=== PATIENT | male | born 1950 | race Caucasian/White ===

== ENCOUNTER 2018-08-06 17:03 | Outpatient (REF) | payer MEDICARE, OTHER, SELFPAY ==
[2018-08-06 20:00] LABS: Abs Immature Grans 0.01 k/cumm (0.0-0.09); Absolute Basophil Count 0.06 k/cumm (0.0-0.2); Absolute Lymphocyte Count 1.71 k/cumm (1.2-3.4); Absolute Neutrophil Count 4.57 k/cumm (1.2-6.7); Basophils % 0.8; HGB 13.2 g/dL (13.5-17.5); Immature Grans % 0.1; Lymphocytes % 22.6; Mean Corp. HGB Concentration 34.7 g/dL (32.0-36.0); Mean Corpuscular Hemoglobin 32.1 pg (27.0-33.0); Mean Corpuscular Volume 92.5 fL (80-95); Mean Platelet Volume 12.6 fL (8.0-11.0); Monocytes % 11.9; Neutrophils % 60.6; Platelet Count 187 x1000/uL (130-400); RBC 4.11 m/cumm (4.50-6.00); RBC Distribution Width 12.8 % (11.8-14.1); White Blood Cell Count 7.55 k/cumm (4.4-10.8)
== END 2018-08-06 17:23 ==
LOC: NCHCN 17:03
PROVIDERS: PCP Internal Medicine; Visit Provider Physician Assistant Medical
DX: K62.5 Hemorrhage of anus and rectum (principal)
CPT/HCPCS: 85025

== ENCOUNTER 2018-08-13 13:50 | Outpatient (REF) | payer MEDICARE, OTHER, SELFPAY ==
[2018-08-13 18:54] LABS: HCT 36.3 % (40.0-50.0); HGB 12.7 g/dL (13.5-17.5); Mean Corpuscular Hemoglobin 32.2 pg (27.0-33.0); Mean Corpuscular Volume 91.9 fL (80-95); Mean Platelet Volume 12.1 fL (8.0-11.0); Platelet Count 185 x1000/uL (130-400); RBC 3.95 m/cumm (4.50-6.00); RBC Distribution Width 12.7 % (11.8-14.1); White Blood Cell Count 8.19 k/cumm (4.4-10.8)
[2018-08-13 19:04] LABS: Prothrombin Time 9.3 sec (9.3-10.8)
== END 2018-08-13 14:10 ==
LOC: NCHCN 13:50
PROVIDERS: PCP Internal Medicine; Visit Provider Internal Medicine
DX: K62.5 Hemorrhage of anus and rectum (principal)
CPT/HCPCS: 85027; 85610

== ENCOUNTER 2018-10-30 11:07 | Outpatient (CLI) | payer MEDICARE, OTHER, SELFPAY ==
--- NOTE | 2018-10-30 11:01 | DI.RAD_ITS ---
SYMPTOMS/DIAGNOSIS: PAIN LUMBAR SPINE: AP and lateral views. There are five lumbar-type vertebral bodies. There is straightening of the normal lordosis. There are vacuum discs at L4-5 and L5-S1. There is disc space narrowing at L5-S1. Osteophytes are seen at the endplates throughout the lumbar spine. No acute fractures or subluxations are seen. Degenerative facet arthropathy is present throughout the lumbar spine. IMPRESSION: Moderate degenerative changes of the lumbar spine. BILATERAL HIPS: No priors. The right hip shows mild acetabular spurring. In the left hip, there is spurring seen both from the acetabulum and the femoral head. There is also mild narrowing of the joint space. The bones do appear to be intact. The soft tissues are unremarkable. IMPRESSION: Mild degenerative changes of the hips, left greater than right.
== END 2018-10-30 11:27 ==
PROVIDERS: PCP Internal Medicine; Referring Provider Internal Medicine; Visit Provider Orthopaedic Surgery
DX: M54.5 Low back pain (principal); M47.817 Spondylosis without myelopathy or radiculopathy, lumbosacral region; M25.551 Pain in right hip; M25.552 Pain in left hip; M16.0 Bilateral primary osteoarthritis of hip
CPT/HCPCS: 73521; 99214; 72100

== ENCOUNTER 2018-12-17 16:27 | Outpatient (REF) | payer MEDICARE, OTHER, SELFPAY | END 2018-12-17 16:47 | LOC: NCHCN 16:27 | PROVIDERS: PCP Internal Medicine; Visit Provider Physician Assistant Medical | DX: R39.9 Unspecified symptoms and signs involving the genitourinary system (principal) | CPT/HCPCS: 87086 ==

== ENCOUNTER 2019-08-21 17:05 | Outpatient (REF) | payer MEDICARE, OTHER, SELFPAY ==
[2019-08-21 20:38] LABS: HGB 13.6 g/dL (13.5-17.5); Mean Corpuscular Hemoglobin 31.4 pg (27.0-33.0); Mean Corpuscular Volume 92.4 fL (80-95); Mean Platelet Volume 11.7 fL (8.0-11.0); Platelet Count 190 x1000/uL (130-400); RBC 4.33 m/cumm (4.50-6.00); RBC Distribution Width 13.2 % (11.8-14.1); White Blood Cell Count 6.49 k/cumm (4.4-10.8)
[2019-08-21 21:01] LABS: ALT 27 U/L (16-63); Anion Gap 11.5 mmol/L (3-11); BUN 15 mg/dL (7-18); CO2 27.5 mmol/L (21.0-32.0); CREATININE 1.12 mg/dL (0.70-1.30); Calcium 8.7 mg/dL (8.5-10.1); Chloride 104 mmol/L (98-107); Ferritin 73 ng/mL (8-388); Glucose 140 mg/dL (70-100); LDL CHOLESTEROL 49 mg/dL (<100); Potassium 3.3 mmol/L (3.5-5.1); Sodium 143 mmol/L (136-145)
== END 2019-08-21 17:25 ==
LOC: NCHCN 17:05
PROVIDERS: PCP Internal Medicine; Visit Provider Internal Medicine
DX: E11.9 Type 2 diabetes mellitus without complications (principal); I10 Essential (primary) hypertension; E78.5 Hyperlipidemia, unspecified
CPT/HCPCS: 80048; 83721; 85027; 82728; 84460

== ENCOUNTER 2020-04-23 13:18 | Emergency (ER) | payer MEDICARE, SELFPAY ==
[2020-04-23] VITALS (13 sets, daily range): BP systolic 116–137; BP diastolic 63–77; PULSE 62–83; RESP 13–27; TEMP 36.7–36.8; O2SAT 92–96
--- NOTE | 2020-04-23 13:15 | RT.EKG_ITS ---
APPROVED REPORT Exam: Resting ECG Patient Location: E HR:77 bpm ECG Measurements Heart Rate 77 AXIS AK 172 P 0 QRSd 103 QRS 5 QT 400 T 105 QTc 453 <Conclusion> Age and gender not entered, assume 48 yo male for purpose of ECG interpretation Sinus rhythm...normal P axis, V-rate 60- 99 Nonspecific T abnormalities, lateral leads...T <-0.10mV, I aVL V5 V6
--- NOTE | 2020-04-23 13:30 | DI.RAD_ITS ---
EXAM: XR CHEST 2V PA LATERAL CLINICAL HISTORY: expressive aphasia, resolved TECHNIQUE: 2D digital imaging was performed. COMPARISON: No exams were available for comparison FINDINGS: The heart is not enlarged. The lungs are clear and well expanded. No pleural effusion seen. Mediastin al contours appear intact. IMPRESSION: Normal chest
--- NOTE | 2020-04-23 13:30 | DI.CT_ITS ---
EXAM: CT BRAIN NECK CTA CLINICAL HISTORY: expressive aphasia, now resolved. TECHNIQUE: Imaging Protocol: Axial CT angiography was performed with multi-slice acquisition and mu lti-planar and/or 3D reconstructions. CONTRAST MATERIAL: Intravenous: Omnipaque 350 Contrast volume:structured data in ml COMPARISON: No exams were available for comparison FINDINGS: Noncontrast cranial CT was performed initially, followed by CT angiography of the cervical cranial re gion with injection of 86 cc Omnipaque 350. Noncontrast cranial CT shows mild generalized cerebral atrophy, no evidence of acute intracranial hem orrhage, mass effect, or midline shift. There is opacification of left frontal sinus and a few bilateral ethmoid air cells. Otherwise the par anasal sinuses and mastoid air cells are clear as visualized. The orbital and temporal bone structur es appear intact. Visualized lung apices are clear. Visualized portions of thoracic aorta and pulmonary arterial circul ation are unremarkable. There is no evidence of a cervical mass or adenopathy. The tracheal laryngeal structures appear intact. The common, internal, and external carotid arteries are within normal limits in the cervical region w ith no evidence of aneurysm, stenosis, or dissection. The vertebral arteries are unremarkable in appearance in the cervical region with no evidence of aneu rysm, stenosis, or dissection. Intracranial portions of the internal carotid arteries appear normal with no evidence of aneurysm, st enosis, or dissection. Intracranial vertebral arteries and basilar artery appear normal with no evidence of aneurysm, stenos is or dissection. No aneurysm identified in the region of the [id number]. The anterior, middle, and posterior cer ebral arteries and major branches appear intact with no evidence of aneurysm, stenosis, or dissection . No enhancing brain lesion identified. IMPRESSION: Negative CT angiography of the cervical cranial region. Left frontal and bilateral ethmoid sinusitis, chronic versus acute. RADIATION DOSE DELIVERED: [id number] DLP DATA REPOSITORY: All CT scans at this facility are submitted to the National Radiology Data Registry (NRDR) Dose Index Registry (DIR) with the [employer] (ACR). RADIATION OPTIMIZATION: All CT scans at this facility use at least one of these dose optimization te chniques: automated exposure control; mA and/or kV adjustment per patient size (includes targeted exa ms where dose is matched to clinical indication); or iterative reconstruction.
--- NOTE | 2020-04-23 13:35 | ED.GENADUL_ITS ---
Discharge Plan Disposition Patient Disposition: HOME Condition: Improving Discharge Details Chief Complaint: CVA/TIA Clinical Impression: Word finding difficulty Primary Care Provider: Roe Boucher ED Provider: Willy Bonner Home Meds and New Rx's Prescriptions: Continued aspirin [Aspir-81] 81 MG tablet,delayed release (DR/EC) 81 mg PO DAILY RF: 0 tamsulosin 0.4 MG capsule 2 tab PO HS RF: 0 simvastatin 20 MG tablet 20 mg PO DAILY RF: 0 hydrochlorothiazide 25 MG tablet 25 mg PO DAILY RF: 0 amlodipine 10 MG tablet 10 mg PO DAILY RF: 0 metformin [Glucophage] 1,000 MG tablet 1,000 mg PO BID RF: 0 losartan 100 MG tablet 100 mg PO DAILY RF: 0 Discharge Instructions Additional Instructions: He underwent CT angiogram of the head and neck tonight which did not show any acute pathology. Please restart your daily aspirin. Continue your regularly prescribed medications. Please follow-up with Dr. Ramos in clinic for recheck. Return if you develop recurrent difficulty with speech, develop a facial droop, clumsiness, headache, difficulty with walking, or any other acute concerns Medical Decision Making This is a 69-year-old male presents on referral by his primary care physician. He reports approximately 1 month ago having 5 to 10-minute episode of word finding and unable to recall people's name. It was not associated with other symptoms and it resolved on its own. He states another episode 1 week ago of 5 minutes for a felt difficulty with expressing his words. He again did not have any associated symptoms and denies headache, facial droop, clumsiness, difficulty with gait, recent illness or injury. He has been feeling well and worked today. He arrives to the emergency department without complaint having finished a job with his excavator today. His vital signs are normal with a blood pressure 137/76. He has a nonfocal neurologic examination. Labs reveal mild worsening of chronic renal insufficiency with creatinine 1.6 today. Patient did receive a small fluid bolus of 500 cc normal saline while in the ED. His laboratories are otherwise reassuring. CT angiogram of the head and neck does not reveal acute pathology. Screening chest x-ray unremarkable. Patient had stopped taking daily aspirin which I will have him resume. We will have him follow-up with Dr. Ramos in clinic and he may need referral to neurology if his intermittent episodes of word finding persist. He will also benefit from recheck of renal function. Lab Data Lab results reviewed: Yes I reviewed the patient's lab results. Labs: Laboratory Results - last 24 hr 04/23/20 04/23/20 04/23/20 13:45 13:45 13:45 WBC 7.52 RBC 3.90 L Hgb 12.4 L Hct 35.8 L MCV 91.8 MCH 31.8 MCHC 34.6 RDW 12.6 Plt Count 212 MPV 11.0 Immature Gran % 0.4 Neutrophils % 69.7 Lymphocytes % 16.1 Monocytes % 10.4 Eosinophils % 2.7 Basophils % 0.7 Absolute Neutrophils 5.25 Absolute Lymphocytes 1.21 Absolute Monocytes 0.78 H Absolute Eosinophils 0.20 Absolute Basophils 0.05 PT 9.9 INR 1.0 Sodium 142 Potassium 3.4 L Chloride 106 Carbon Dioxide 26.0 Anion Gap 10.0 BUN 23 H Creatinine 1.64 H Estimated GFR/1.73 m2 41.62 Glucose 203 H Calcium 8.5 Magnesium 1.9 Total Bilirubin 0.4 AST 17 ALT 24 Alkaline Phosphatase 83 Troponin I < 0.05 Total Protein 7.1 Albumin 3.6 HPI General Mode of arrival: ambulatory . Date/Time Provider Initiated Documentation: 04/23/20 13:23 . Limitations to Documentation: no limitations . Information obtained by: patient . History of Present Illness 69 year old M presents to the emergency department with the chief complaint of 2 episodes of self resolved word finding/expressive aphasia, described as mild, and is localized to the mouth. Patient started experiencing this minute(s) and it has been now resolved. No relieving factors improve symptom(s), No exacerbating factors reported . Patient notes no other symptoms.; denies chest pain, diaphoresis, fever/chills, headaches, loss of appetite, nausea/vomiting and seizure. Patient did receive the following treatments prior to arrival, none Related Data Home Medications Medication Instructions Recorded Confirmed aspirin [Aspir-81] 81 mg PO DAILY 10/19/15 10/30/18 simvastatin 20 mg PO DAILY 10/19/15 04/23/20 tamsulosin 2 tab PO HS 10/19/15 04/23/20 amlodipine 10 mg PO DAILY 11/04/16 04/23/20 hydrochlorothiazide 25 mg PO DAILY 11/04/16 04/23/20 losartan 100 mg PO DAILY 11/04/16 04/23/20 metformin [Glucophage] 1,000 mg PO BID 11/04/16 04/23/20 Allergies Allergy/AdvReac Type Severity Reaction Status Date / Time No Known Allergies Allergy Unverified 04/23/20 13:33 General Stated Complaint: CVA/TIA BEATRIZ: 3 Review of Systems Narrative: Stop taking aspirin months ago due to bleeding hemorrhoids that are now improved. Takes his other medications. No other illness. No headache, no facial droop, no difficulty with gait or speech. No clumsiness of the hands. 8 systems reviewed and otherwise negative [facility] Social History Smoking/Tobacco Use Status: Never Alcohol Intake: never Drug use: Never Substance use type: does not use Do you feel safe at home: Yes Do you feel safe in your relationship?: Yes Exam Narrative Exam Narrative: GEN: awake, alert, oriented 3. Pleasant, well groomed, interact jose armando. HEAD: Normocephalic, atraumatic ENT: Mucous membranes moist, oropharynx unremarkable, External ear exam unremarkable EYES: PERRL, EOMI NECK: Full ROM, no JORGE LUIS, no menigismus CHEST/RESP: Nontender, clear to auscultation bilateral, no wheeze/rhonchi/rales CARDIOVASCULAR: RRR, no murmur, rub georgie. 2+ Rad pulse bilateral ABDOMEN: Soft, nontender, no mass. +Bowel sounds EXT: Full ROM, no edema, no rash Neuro: Grossly normal neurologic exam, conversant, interactive. Cranial nerves II through XII intact, [id number] intact, motor graded 5 out of 5 in the bilateral upper and lower extremities. Visual jara normal to confrontation Psych: Speech fluent, thoughts congruent, affect normal Course Vital Signs Vital signs: Vital Signs Temperature 36.8 C 04/23/20 13:23 Pulse 73 04/23/20 13:23 Respiratory Rate 16 04/23/20 13:23 Blood Pressure 137/76 04/23/20 13:23 Pulse Oximetry 95 04/23/20 13:23 Temperature 36.8 C 04/23/20 13:23 Temperature Source Temporal Artery Scan 04/23/20 13:23 Pulse 73 04/23/20 13:23 Respiratory Rate 16 04/23/20 13:23 Respiratory Effort Non-Labored 04/23/20 13:31 Blood Pressure 137/76 04/23/20 13:23 Blood Pressure Position Supine 04/23/20 13:23 Pulse Oximetry 95 04/23/20 13:23 Oxygen Delivery Method Room Air 04/23/20 13:23 Oxygen Flow Rate 0 04/23/20 13:23 Pain Level 1 04/23/20 13:23
[2020-04-23 14:04] LABS: Prothrombin Time 9.9 sec (9.3-11.0)
[2020-04-23 14:07] LABS: ALT 24 U/L (16-63); AST 17 U/L (15-37); Abs Immature Grans 0.03 k/cumm (0.0-0.09); Absolute Basophil Count 0.05 k/cumm (0.0-0.2); Absolute Lymphocyte Count 1.21 k/cumm (1.2-3.4); Absolute Monocyte Count 0.78 k/cumm (0.11-0.7); Absolute Neutrophil Count 5.25 k/cumm (1.2-6.7); Albumin 3.6 g/dL (3.4-5.0); Alkaline Phosphatase 83 U/L (46-116); BUN 23 mg/dL (7-18); Basophils % 0.7; Bilirubin, Total 0.4 mg/dL (0.2-1.0); CREATININE 1.64 mg/dL (0.70-1.30); Calcium 8.5 mg/dL (8.5-10.1); Chloride 106 mmol/L (98-107); Eosinophils % 2.7; Estimated GFR 41.62 (mL/min/1.73m2); Glucose 203 mg/dL (74-106); HCT 35.8 % (40.0-50.0); HGB 12.4 g/dL (13.5-17.5); Immature Grans % 0.4 %; Lymphocytes % 16.1; Magnesium 1.9 mg/dL (1.8-2.4); Mean Corp. HGB Concentration 34.6 g/dL (32.0-36.0); Mean Corpuscular Hemoglobin 31.8 pg (27.0-33.0); Mean Corpuscular Volume 91.8 fL (80-95); Monocytes % 10.4; Neutrophils % 69.7; Platelet Count 212 x1000/uL (130-400); Potassium 3.4 mmol/L (3.5-5.1); RBC Distribution Width 12.6 % (11.8-14.1); Sodium 142 mmol/L (136-145); Total Protein 7.1 g/dL (6.4-8.2); White Blood Cell Count 7.52 k/cumm (4.4-10.8)
[2020-04-23 14:08] LABS: Troponin I < 0.05 ng/mL (<0.06)
[2020-04-23] MEDS: Normal Saline 250 ML 500 ML IV (14:30)
[2020-04-23] MEDS: Normal Saline - Diluent 50 ML VIAL IV (14:59)
[2020-04-23] MEDS: Omnipaque 350 MG/ML 100 ML BTL IJ (14:59)
[2020-04-23] MEDS: Normal Saline Flush 10 ML SYR IVP (15:00)
== END 2020-04-23 16:01 | disposition home or self-care (01) ==
PROVIDERS: Emergency Provider Emergency Medicine; PCP Internal Medicine
DX: R47.89 Other speech disturbances (principal); N18.9 Chronic kidney disease, unspecified; I12.9 Hypertensive chronic kidney disease with stage 1 through stage 4 chronic kidney disease, or unspecified chronic kidney disease; E11.22 Type 2 diabetes mellitus with diabetic chronic kidney disease; Z79.84 Long term (current) use of oral hypoglycemic drugs
CPT/HCPCS: 36415; 36416; 70496; 70498; 80053; 82962; 93005; 96360; 99285; 71046; 83735; 84484; 85025; 85610; 93010; 99284; J3490

== ENCOUNTER → 2020-04-30 13:35 | Outpatient (BNVA) | payer MEDICARE, SELFPAY | PROVIDERS: PCP Internal Medicine; Referring Provider Family Medicine; Visit Provider Psychiatry & Neurology Neurology | DX: I63.89 Other cerebral infarction (principal); G45.9 Transient cerebral ischemic attack, unspecified; E11.22 Type 2 diabetes mellitus with diabetic chronic kidney disease; I10 Essential (primary) hypertension; R47.89 Other speech disturbances | CPT/HCPCS: 99205; 99215 ==

== ENCOUNTER 2020-05-01 02:39 | Outpatient (CLI) | payer MEDICARE, SELFPAY ==
--- NOTE | 2020-06-11 10:47 | W.CARDEVENT ---
Date of service: 06/11/20 Time of Service: 10:47 Cardiac Event Recorder Referring Provider:: DR Dumont Indications:: TIA Cardiac Event Note: This was a 30-day cardiac event monitor reportedly ordered for indication of transient ischemic attack Predominant rhythm was sinus. Average heart rate was 71. Minimum heart rate was 54 and maximum 106 There was no atrial fibrillation Sinus bradycardia was noted during sleep There were two 4 beat runs of nonsustained ventricular tachycardia
== END 2020-05-01 02:59 ==
PROVIDERS: PCP Internal Medicine; Visit Provider Psychiatry & Neurology Neurology
DX: G45.9 Transient cerebral ischemic attack, unspecified (principal); I47.2 Ventricular tachycardia
CPT/HCPCS: 93270

== ENCOUNTER 2020-05-07 02:56 | Outpatient (CLI) | payer MEDICARE, SELFPAY ==
[2020-05-07 09:10] LABS: Hemoglobin A1C 6.6 % (3.8-5.6)
[2020-05-07 10:18] LABS: Anion Gap 9.7 mmol/L (3-11); BUN 31 mg/dL (7-18); CO2 27.3 mmol/L (21.0-32.0); CREATININE 1.61 mg/dL (0.70-1.30); Calcium 8.6 mg/dL (8.5-10.1); Calculated LDL 47 mg/dL (<100); Chloride 106 mmol/L (98-107); Cholesterol 107 mg/dL (<200); Estimated GFR 42.52 (mL/min/1.73m2); Glucose 96 mg/dL (74-106); HDL Cholesterol 38 mg/dL (40-60); Potassium 3.7 mmol/L (3.5-5.1); Sodium 143 mmol/L (136-145); Triglyceride 111 mg/dL (<150)
== END 2020-05-07 03:16 ==
PROVIDERS: PCP Internal Medicine; Visit Provider Psychiatry & Neurology Neurology
DX: E11.42 Type 2 diabetes mellitus with diabetic polyneuropathy (principal); G45.9 Transient cerebral ischemic attack, unspecified; I63.9 Cerebral infarction, unspecified
CPT/HCPCS: 36415; 80048; 80061; 83036

== ENCOUNTER 2020-05-28 00:46 | Outpatient (CLI) | payer MEDICARE, SELFPAY ==
--- NOTE | 2020-05-28 12:17 | DI.US_ITS ---
APPROVED REPORT EXAM: Comprehensive 2D, Doppler, and color-flow Echocardiogram Patient Location: Out-Patient Front End Technician: Kate Kwan RDCS (AE) Indications: TIA,CVA Other Information Study Quality: Adequate Conclusion Left Ventricle : The left ventricle is normal size. The left ventricular systolic function is normal. The left ventricular ejection fraction is within the normal range. There is normal left ventricular wall thickness. There is normal LV segmental wall motion. The left ventricular diastolic function is normal. LVEF is 58%. Right Ventricle : The right ventricle is normal size. The right ventricular systolic function is norm al. The RVSP is 30.4 mmHg. Atria : The left atrium size is normal. The right atrium size is normal. The interatrial septum is in tact with no evidence for an atrial septal defect by color Doppler. Bubble study was not performed. Valves: There are no hemodynamically significant valvular lesions. Great Vessels : The aortic root is normal in size. The ascending aorta is normal in size. Aortic arch is normal in caliber. IVC is normal in size and collapses >50% with inspiration. There is no prior study available for comparison. Wall motion Left Ventricle The left ventricle is normal size. The left ventricular systolic function is normal. The left ventric ular ejection fraction is within the normal range. There is normal left ventricular wall thickness. T here is normal LV segmental wall motion. The left ventricular diastolic function is normal. There is no ventricular septal defect visualized. LVEF is 58%. Right Ventricle The right ventricle is normal size. The right ventricular systolic function is normal. The RVSP is 30 .4 mmHg. Atria The left atrium size is normal. The right atrium size is normal. The interatrial septum is intact wit h no evidence for an atrial septal defect by color Doppler. Bubble study was not performed. Aortic Valve The Aortic valve is sclerotic. Aortic valve is trileaflet. There is no aortic valvular stenosis. Trac e to mild aortic regurgitation. Mitral Valve Mild mitral annular calcification. No evidence of mitral valve stenosis. Trace to mild mitral regurgi tation. Tricuspid Valve The tricuspid valve is normal in structure. There is no tricuspid valve stenosis. Trace to mild tricu spid regurgitation. Pulmonic Valve The pulmonary valve is normal in structure. There is no pulmonic valvular stenosis. Mild pulmonic reg urgitation. Great Vessels The aortic root is normal in size. The ascending aorta is normal in size. Aortic arch is normal in ca liber. IVC is normal in size and collapses >50% with inspiration. Pericardium There is no pericardial effusion. There is no pleural effusion. 2D Dimensions IVSD d PLAX 1.09 cm M: 0.6-1.2 LV Vol A2C d MOD 122.5 mL LVPW d PLAX 1.07 cm M: 0.6 - 1.2 LV Vol A4C d MOD 87.6 mL LVID d PLAX 5.58 cm M: 4.2 - 5.8 LA vol/ BSA A2C s A-L 30.6 mL/m2 LVDs 3.75 cm M: 2.5 - 4.0 LA vol/ BSA A4C s A-L 24.8 mL/m2 Ao Root d 3.39 cm M: 3.1 - 3.7 LA Vol/ BSA Biplane s A-L 29.4 mL/m2 RA Area A4C 12.52 cm2 LA Area A4C s MOD 18.83 cm2 RA Vol/ BSA A4C s A-L 11.9 mL/m2 LA Area A2C s MOD 19.62 cm2 Ao Asc Diam d 3.40 cm M: 2.6 - 3.4 LV EF A4C MOD 57.3 % LV EF Teichholz 60.4 % LV EF A2C MOD 58.5 % LVEF (Ely's) 57.58 % M: 52 - 72 LV EF Biplane MOD 57.6 % LV Volume 85.92 mL M: 62 - 150 SV 66.20 mL LV Volume Index 42.53 mL/m2 M: 34 - 74 SV Index 32.74 mL/m2 LV Vol Biplane MOD 115.0 mL FS 32.60 % M-Mode TAPSE 2.40 cm (M/F) >1.7 LV Diastology MV E' medial 0.087 (>0.07 m/s) E/A Ratio 0.9 LV E/e MED 7.85 (<14) MV E Vmax 0.68 (0.4-1.3 m/s) MV E' lateral 0.071 (>0.1 m/s) MV A Vmax 0.80 (0.4-1.3 m/s) LV E/e LAT 9.65 (<14) MV E/A Ratio 0.82 MV E/E' medial 7.89 MV E/E' lateral 9.66 Aortic Valve LVOT Area 3.51 cm2 AoV Area Vmax 2.58 cm2 LVOT Vmax 1.18 m/s AoV Area/ BSA (Vmax) 1.27 cm2/m2 LVOT Mean Jaime. 0.74 m/s EMILIANA Mean Jaime. 2.31 cm2 LVOT Peak Grad 5.6 mmHg EMILIANA Mean Jaime. Index 1.14 cm2/m2 LVOT Mean Grad 2.6 mmHg AR DT 4188 msec LVOT VTI 0.265 m AR PHT 1214 msec LVOT Diam s 2.10 cm AoV Vmax 1.61 m/s Velocity Ratio 0.73 AoV Mean Jaime. 1.13 m/s AoV Peak Grad 10.4 mmHg LVOT SV 93.01 mL AoV Mean Grad 5.6 mmHg AoV VTI 0.336 m AoV Area VTI 2.77 cm2 AoV Area/ BSA (VTI) 1.37 cm/m2 Mitral Valve MV DT 240 (160-240 msec) MR Vmax 4.28 m/s MV PHT 70 msec MR VTI 1.327 m MV Area PHT 3.16 cm2 MR Peak Grad 73.2 mmHg MV VTI 0.404 m MR Mean Grad 59.4 mmHg MV VTI Annulus 0.400 m MR PISA Radius 0.24 cm MV Area VTI 2.28 (4.0-6.0 cm2) MR EROA 0.03 cm2 MR Aliasing Velocity 0.35 m/s MR PISA 0.35 cm2 Pulmonary Valve PV Vmax 1.17 (0.5-1.5 m/s) RVOT Peak Gr. 1.79 mmHg PV Peak Grad 5.4 mmHg RVOT Mean Gr. 0.95 mmHg PV Mean Grad 2.8 mmHg RVOT VTI 0.145 m PV VTI 0.262 m RVOT Vmax 0.67 m/s Tricuspid Valve TR Peak Grad 27.3 mmHg TR Vmax 2.62 m/s RA Pressure 3.00 mmHg RVSP (TR) 30.4 mmHg
--- NOTE | 2020-06-04 15:15 | W.CARDEVENT ---
Date of service: 06/04/20 Time of Service: 15:15 Cardiac Event Recorder Referring Provider:: Franky Pathak Indications:: TIA Cardiac Event Note: There is a 30-day event monitor ordered for the indication of TIA. ?The patient was in normal sinus rhythm for the majority recording with an average heart rate of 75 bpm ?There were 3 automatically detected events 2 of which were associated with NSVT (4 beats) ?Patient triggered events were all associated with sinus rhythm. ?There were no episodes of atrial fibrillation, no pauses grade 3 seconds no evidence of high degree heart block.
== END 2020-05-28 01:06 ==
PROVIDERS: PCP Internal Medicine; Visit Provider Psychiatry & Neurology Neurology
DX: I63.9 Cerebral infarction, unspecified (principal); G45.9 Transient cerebral ischemic attack, unspecified
CPT/HCPCS: 93306

== ENCOUNTER 2020-06-11 10:47 | Outpatient (CLI) | payer MEDICARE, SELFPAY | END 2020-06-11 11:07 | PROVIDERS: PCP Internal Medicine; Referring Provider Psychiatry & Neurology Neurology; Visit Provider Internal Medicine Cardiovascular Disease | DX: G45.9 Transient cerebral ischemic attack, unspecified (principal); I47.1 Supraventricular tachycardia | CPT/HCPCS: 93272 ==

== ENCOUNTER 2020-09-10 19:38 | Outpatient (REF) | payer MEDICARE, SELFPAY ==
[2020-09-12 16:40] LABS: COVID-19 RT-PCR Result NEGATIVE (Negative)
== END 2020-09-10 19:58 ==
LOC: NCHCN 19:38
PROVIDERS: PCP Internal Medicine; Visit Provider Internal Medicine
DX: J20.9 Acute bronchitis, unspecified (principal); R06.09 Other forms of dyspnea
CPT/HCPCS: U0003

== ENCOUNTER 2020-09-24 10:37 | Outpatient (CLI) | payer MEDICARE, SELFPAY ==
--- NOTE | 2020-09-24 | DI.RAD_ITS ---
EXAM: XR CHEST 2V PA LATERAL CLINICAL HISTORY: PNEUMONIA > 1 MONTH. TECHNIQUE: 2D digital imaging was performed. COMPARISON: CR XR CHEST 2V PA LATERAL from 04/23/2020 FINDINGS: Heart size is normal. The mediastinum is not widened. Lungs are clear. No infiltrates nor pleural effusions. Mild increased density over the right lower lung field I suspect is related to possible gynecomastia. IMPRESSION: No acute pulmonary findings. DATA REPOSITORY: RADIATION DOSE DELIVERED:
== END 2020-09-24 10:57 ==
PROVIDERS: PCP Internal Medicine; Visit Provider Internal Medicine
DX: Z87.09 Personal history of other diseases of the respiratory system (principal)
CPT/HCPCS: 71046

== ENCOUNTER 2020-10-27 12:08 | Outpatient (CLI) | payer MEDICARE, SELFPAY ==
--- NOTE | 2020-10-27 14:15 | DI.RAD_ITS ---
EXAM: XR TOE RT GREAT CLINICAL HISTORY: PAIN RT TOE M79.674. TECHNIQUE: 2D digital imaging was performed. COMPARISON: No exams were available for comparison FINDINGS: BONES: There is an acute oblique mildly displaced fracture involving the diaphysis of the proximal p halanx of the great toe. The fracture does not appear to extend into the joint spaces. No bony dest ructive lesion is seen. JOINTS: There is no dislocation. Mild degenerative changes are seen at the 1st MTP joint. SOFT TISSUE: Soft tissue swelling of the great toe. IMPRESSION: Mildly displaced acute oblique fracture of the proximal phalanx of the great toe. DATA REPOSITORY: RADIATION DOSE DELIVERED:
== END 2020-10-27 12:28 ==
PROVIDERS: PCP Internal Medicine; Visit Provider Physician Assistant
DX: S92.411A Displaced fracture of proximal phalanx of right great toe, initial encounter for closed fracture (principal)
CPT/HCPCS: 73660

== ENCOUNTER 2021-07-09 16:58 | Outpatient (REF) | payer MEDICARE, SELFPAY ==
[2021-07-09 18:29] LABS: HCT 35.6 % (40.0-50.0); HGB 11.8 g/dL (13.5-17.5); MCH 31.1 pg (27.0-33.0); MCHC 33.1 % (32.0-36.0); MCV 93.7 fL (80-95); MPV 12.1 fL (8.0-11.0); Platelet Count 217 10^3/uL (130-400); RDW 12.8 % (11.8-14.1); RDW-SD 43.9 fL; WBC 7.79 10^3/uL (4.4-10.8)
[2021-07-09 19:09] LABS: ALT 31 U/L (16-63); AST 17 U/L (15-37); Albumin 3.9 g/dL (3.4-5.0); Alkaline Phosphatase 93 U/L (46-116); Anion Gap 11.5 mmol/L (3-11); BUN 37 mg/dL (7-18); Bilirubin, Total 0.4 mg/dL (0.2-1.0); CO2 25.5 mmol/L (21.0-32.0); CREATININE 1.7 mg/dL (0.70-1.30); Calcium 9.1 mg/dL (8.5-10.1); Chloride 107 mmol/L (98-107); Estimated GFR 39.71 (mL/min/1.73m2); Glucose 120 mg/dL (74-106); LDL CHOLESTEROL 52 mg/dL (<100); Potassium 3.4 mmol/L (3.5-5.1); Sodium 144 mmol/L (136-145); Total Protein 7.1 g/dL (6.4-8.2)
== END 2021-07-09 16:59 | disposition home or self-care (01) ==
LOC: NCHCN 16:58
PROVIDERS: PCP Internal Medicine; Visit Provider Internal Medicine
DX: D64.9 Anemia, unspecified (principal); K76.0 Fatty (change of) liver, not elsewhere classified; N18.9 Chronic kidney disease, unspecified
CPT/HCPCS: 80053; 83721; 85027

== ENCOUNTER 2021-07-30 09:15 | Outpatient (CLI) | payer MEDICARE, SELFPAY ==
--- NOTE | 2021-07-30 | DI.RAD_ITS ---
Exam(s) XR RIBS RT W PA LAT CHEST EXAM: XR RIBS RT W PA LAT CHEST CLINICAL HISTORY: RT SIDED RIB PAIN R07.81 TECHNIQUE: 2D digital imaging was performed. Six views were obtained. COMPARISON: CR XR lumbar spine AP, LAT from 10/30/2018 CR XR lumbar spine AP, LAT from 10/30/2018 CR XR CHEST 2V PA LATERAL from 09/24/2020 CR XR CHEST 2V PA LATERAL from 09/24/2020 FINDINGS: MEDIASTINUM: Normal. HEART: Normal. PULMONARY VASCULATURE: Normal. LUNGS: Clear. PLEURAL SPACE: No pleural effusion or pneumothorax. BONE:Normal. RIGHT RIBS: Normal. OTHER FINDINGS:Normal. IMPRESSION: 1. No acute pulmonary findings. 2. Unremarkable right ribs. DATA REPOSITORY: RADIATION DOSE DELIVERED:
== END 2021-07-30 09:35 ==
PROVIDERS: PCP Internal Medicine; Visit Provider Nurse Practitioner Family
DX: R07.81 Pleurodynia (principal)
CPT/HCPCS: 71046; 71100

== ENCOUNTER 2021-11-02 15:24 | Outpatient (REF) | payer MEDICARE, SELFPAY ==
[2021-11-02 20:16] LABS: Bilirubin Negative (Negative); Blood Trace-intact (Negative); Clarity Clear (Clear); Glucose 500 mg/dL (Negative); Ketones Negative (Negative); Leukocyte Esterase Negative (Negative); Nitrite Negative (Negative); Specific Gravity 1.025 (1.005-1.025); Urobilinogen 0.2 EU/dL (Up TO 0.2); pH 6.5 (5-8)
[2021-11-02 20:27] LABS: Bacteria Negative HPF (Negative); Crystals Negative HPF (Negative); Epithelial Cells Negative HPF (Negative); Mucus Negative (Negative); RBC 0-2 HPF (0-2); WBC Negative HPF (0-5)
[2021-11-02 20:28] LABS: C & S Indicated? No
== END 2021-11-02 15:25 | disposition home or self-care (01) ==
LOC: NCHCN 15:24
PROVIDERS: PCP Internal Medicine; Visit Provider Nurse Practitioner Family
DX: R31.9 Hematuria, unspecified (principal)
CPT/HCPCS: 81003; 81015

== ENCOUNTER 2022-07-11 15:01 | Outpatient (REF) | payer MEDICARE, SELFPAY ==
[2022-07-11 19:37] LABS: Abs Immature Grans 0.02 10^3/uL (0.0-0.06); Absolute Basophil Count 0.09 10^3/uL (0.0-0.2); Absolute Lymphocyte Count 1.16 10^3/uL (1.2-3.4); Absolute Monocyte Count 0.69 10^3/uL (0.1-0.8); Basophils % 1.3; Eosinophils % 4.2; HCT 38.3 % (40.0-50.0); HGB 12.8 g/dL (13.5-17.5); Immature Grans % 0.3; Lymphocytes % 16.2; MCH 31.1 pg (27.0-33.0); MCHC 33.4 % (32.0-36.0); MCV 93 fL (80-95); MPV 12.1 fL (8.0-11.0); Monocytes % 9.6; Neutrophils % 68.4; Platelet Count 190 10^3/uL (130-400); RBC 4.12 10^6/uL (4.36-5.78); RDW 12.8 % (11.8-14.1); RDW-SD 43.6 fL; WBC 7.16 10^3/uL (4.4-10.8)
[2022-07-11 20:02] LABS: Albumin 3.6 g/dL (3.4-5.0); Anion Gap 11.9 mmol/L (3-11); BUN 25 mg/dL (7-18); CO2 25.1 mmol/L (21.0-32.0); CREATININE 1.6 mg/dL (0.70-1.30); Calcium 8.7 mg/dL (8.5-10.1); Chloride 105 mmol/L (98-107); Estimated GFR 44.93 (mL/min/1.73m2); Glucose 219 mg/dL (74-106); Potassium 3.6 mmol/L (3.5-5.1); Sodium 142 mmol/L (136-145)
[2022-07-11 21:15] LABS: COMMENT (LAB VIEW ONLY) 150.56 mg/dL; PROTEIN 42.6 mg/dL; Prot/Crea Ur Ratio 0.28
[2022-07-12 09:24] LABS: COMMENT (LAB VIEW ONLY) 147.76 mg/dL
[2022-07-12 09:30] LABS: Microalb ug/mg Crea 124.2 ug/mg Cr
[2022-07-12 21:38] LABS: Parathyroid Hormone,Intact 39 pg/mL (19-88)
[2022-07-13 08:43] LABS: Hepatitis B Surface Ag Negative (Negative)
[2022-07-13 09:34] LABS: Hepatitis C Ab w Rflx HCV PCR Negative (Negative)
[2022-07-13 10:37] LABS: IgA 221 mg/dL (85-499); IgG 770 mg/dL (610-1,616); IgM 60 mg/dL (35-242)
[2022-07-13 13:47] LABS: Albumin g/dL 3.8 g/dL (3.6-5.2); Total Protein 6.2 g/dL (6.3-8.2)
[2022-07-13 14:52] LABS: Albumin, Urine % 54.8 %; Albumin, Urine mg/dL 21 mg/dL; Globulins, Urine % 45.2 %; Globulins, Urine mg/dL 17 mg/dL; Immunotyping, Urine (See Note); Total Protein Urine 38 mg/dL (See Note)
== END 2022-07-11 15:02 | disposition home or self-care (01) ==
LOC: LBN 15:01
PROVIDERS: PCP Internal Medicine; Visit Provider Internal Medicine Nephrology
DX: N18.32 Chronic kidney disease, stage 3b (principal); K76.0 Fatty (change of) liver, not elsewhere classified
CPT/HCPCS: 80048; 82784; 84156; 84166; 86335; 86803; 87340; 82040; 82043; 82565; 82570; 83970; 84165; 85025

== ENCOUNTER 2022-08-29 09:36 | Outpatient (REF) | payer MEDICARE, SELFPAY ==
[2022-08-29 19:16] LABS: Abs Immature Grans 0.02 10^3/uL (0.0-0.06); Absolute Eosinophil Count 0.39 10^3/uL (0.0-0.7); Absolute Lymphocyte Count 0.92 10^3/uL (1.2-3.4); Absolute Monocyte Count 0.63 10^3/uL (0.1-0.8); Absolute Neutrophil Count 4.15 10^3/uL (1.2-6.7); Basophils % 1.6; Eosinophils % 6.3; HCT 38.7 % (40.0-50.0); HGB 13.2 g/dL (13.5-17.5); Immature Grans % 0.3; Lymphocytes % 14.8; MCH 31.3 pg (27.0-33.0); MCHC 34.1 % (32.0-36.0); MCV 92 fL (80-95); MPV 11.9 fL (8.0-11.0); Monocytes % 10.1; Neutrophils % 66.9; Platelet Count 204 10^3/uL (130-400); RBC 4.22 10^6/uL (4.36-5.78); RDW 12.7 % (11.8-14.1); RDW-SD 42.6 fL; WBC 6.21 10^3/uL (4.4-10.8)
[2022-08-29 19:32] LABS: ALT 18 U/L (16-63); AST 17 U/L (15-37); Albumin 3.5 g/dL (3.4-5.0); Alkaline Phosphatase 90 U/L (46-116); Anion Gap 6.5 mmol/L (3-11); BUN 22 mg/dL (7-18); Bilirubin, Total 0.5 mg/dL (0.2-1.0); CO2 29.5 mmol/L (21.0-32.0); CREATININE 1.5 mg/dL (0.70-1.30); Calcium 8.9 mg/dL (8.5-10.1); Chloride 105 mmol/L (98-107); Estimated GFR 48.55 (mL/min/1.73m2); Glucose 220 mg/dL (74-106); Potassium 3.8 mmol/L (3.5-5.1); Sodium 141 mmol/L (136-145)
== END 2022-08-29 09:37 | disposition home or self-care (01) ==
LOC: LBN 09:36
PROVIDERS: PCP Internal Medicine; Visit Provider Neurological Surgery
DX: Z01.818 Encounter for other preprocedural examination (principal)
CPT/HCPCS: 80053; 85025

== ENCOUNTER 2022-11-23 17:52 | Outpatient (REF) | payer MEDICARE, SELFPAY ==
[2022-11-23 20:56] LABS: TSH 3.86 uIU/mL (0.36-3.74)
[2022-11-25 10:02] LABS: HSV Type 1 Ab, IgG Positive (Negative); HSV Type 2 Ab, IgG Negative (Negative)
== END 2022-11-23 17:53 | disposition home or self-care (01) ==
LOC: NCHCN 17:52
PROVIDERS: PCP Internal Medicine; Visit Provider Internal Medicine
DX: E03.9 Hypothyroidism, unspecified (principal); B37.42 Candidal balanitis
CPT/HCPCS: 84443; 86695; 86696

== ENCOUNTER 2023-08-11 09:36 | Outpatient (CLI) | payer MEDICARE, SELFPAY ==
[2023-08-11 09:41] LABS: Abs Immature Grans 0.01 10^3/uL (0.0-0.06); Absolute Basophil Count 0.07 10^3/uL (0.0-0.2); Absolute Eosinophil Count 0.43 10^3/uL (0.0-0.7); Absolute Monocyte Count 0.59 10^3/uL (0.1-0.8); Absolute Neutrophil Count 3.88 10^3/uL (1.2-6.7); Basophils % 1.1; HCT 37.3 % (40.0-50.0); HGB 13.1 g/dL (13.5-17.5); Immature Grans % 0.2; Lymphocytes % 19.4; MCH 32.2 pg (27.0-33.0); MCHC 35.1 % (32.0-36.0); MCV 92 fL (80-95); MPV 11.4 fL (8.0-11.0); Monocytes % 9.5; Neutrophils % 62.8; Platelet Count 174 10^3/uL (130-400); RBC 4.07 10^6/uL (4.36-5.78); RDW 12.4 % (11.8-14.1); RDW-SD 41.6 fL; WBC 6.18 10^3/uL (4.4-10.8)
[2023-08-11 09:56] LABS: Albumin 3.6 g/dL (3.4-5.0); Anion Gap 7.7 mmol/L (3-11); BUN 32 mg/dL (7-18); CO2 30.3 mmol/L (21.0-32.0); CREATININE 1.8 mg/dL (0.70-1.30); Chloride 103 mmol/L (98-107); Estimated GFR 38.77 (mL/min/1.73m2); Glucose 178 mg/dL (74-106); Potassium 3.5 mmol/L (3.5-5.1); Sodium 141 mmol/L (136-145)
[2023-08-11 10:09] LABS: COMMENT (LAB VIEW ONLY) 17.88 mg/dL; PROTEIN 6.8 mg/dL; Prot/Crea Ur Ratio 0.38
[2023-08-11 10:12] LABS: COMMENT (LAB VIEW ONLY) 18.75 mg/dL
[2023-08-11 10:13] LABS: Microalb ug/mg Crea 154.1 ug/mg Cr
[2023-08-11 18:45] LABS: Parathyroid Hormone,Intact 67 pg/mL (19-88)
== END 2023-08-11 09:37 | disposition home or self-care (01) ==
PROVIDERS: PCP Internal Medicine; Visit Provider Internal Medicine Nephrology
DX: N18.31 Chronic kidney disease, stage 3a (principal)
CPT/HCPCS: 80048; 82040; 82043; 82565; 82570; 83970; 84156; 85025

== ENCOUNTER → 2023-09-04 01:07 | Outpatient (CLI) | payer MEDICARE, SELFPAY ==
--- NOTE | 2023-09-04 | DI.US_ITS ---
Exam(s) US RENAL EXAM: US RENAL CLINICAL HISTORY: STAGE 3 B CHRONIC KIDNEY DISEASE, N18.32, DIABETIC NEUROPATHY. TECHNIQUE: Denise scale, color and spectral Doppler were used. COMPARISON: There are no priors for comparison. FINDINGS: Renal size in cm: Right: 11.8. Left: 12.8. Echogenicity: Normal. Hydronephrosis: No. Cyst or mass: There are bilateral simple renal cysts. The largest is in the superior pole of the rig ht kidney and measures 3.9 x 3.6 x 4.2 cm. The largest on the left kidney is in the superior pole an d measures 1.8 x 1.6 x 1.8 cm. Nephrolithiasis: No. Other findings: None. Bladder:Normal. Ureteral jets: Right: Visualized and unremarkable. Left: Visualized and unremarkable. Prevoid vol:335 cc Postvoid vol:37 cc Prostate: 31 cc Renal color flow: Symmetric and within normal limits. IMPRESSION: 1. Bilateral simple renal cysts. No follow-up is recommended. 2. Mildly enlarged prostate gland. DATA REPOSITORY:
== END ==
PROVIDERS: PCP Internal Medicine; Visit Provider Internal Medicine Nephrology
DX: N18.32 Chronic kidney disease, stage 3b
CPT/HCPCS: 76770

== ENCOUNTER 2023-09-27 12:08 | Emergency (ER) | payer MEDICARE, SELFPAY ==
[2023-09-27] VITALS (12 sets, daily range): BP systolic 132–171; BP diastolic 49–89; PULSE 60–69; RESP 16; TEMP 36.1–36.7; O2SAT 96–99
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
--- NOTE | 2023-09-27 13:15 | RT.EKG_ITS ---
APPROVED REPORT Exam: Resting ECG Reason for Exam: [place] Patient Location: E HR:66 bpm ECG Measurements Heart Rate 66 AXIS CO 166 P 43 QRSd 103 QRS -5 QT 391 T 188 QTc 409 Conclusion Sinus rhythm...normal P axis, V-rate 60- 99 Nonspecific repol abnormality, lateral leads...ST dep, T neg, I aVL V5 V6 NSR, boarderline QT prolongation. nonspecifc ST TW changes, no STEMI, minor changes from previous
--- NOTE | 2023-09-27 13:15 | DI.RAD_ITS ---
Exam(s) XR CHEST 2V PA LATERAL EXAM: XR CHEST 2V PA LATERAL CLINICAL HISTORY: CP SOB. TECHNIQUE: 2D digital imaging was performed. COMPARISON: CR XR RIBS RT W PA LAT CHEST from 07/30/2021 FINDINGS: 2 views: Heart size is normal. The mediastinum is not widened. Lungs are clear. No infiltrates nor pleural effusions. IMPRESSION: No acute pulmonary findings. DATA REPOSITORY: RADIATION DOSE DELIVERED:
[2023-09-27] MEDS: Aspirin 81 MG CHEW 243 MG CH (13:44)
[2023-09-27] MEDS: Albuterol/Ipratropium 3 ML UPD VIAL UPD (13:44)
[2023-09-27 13:47] LABS: Abs Immature Grans 0.02 10^3/uL (0.0-0.06); Absolute Basophil Count 0.09 10^3/uL (0.0-0.2); Absolute Eosinophil Count 0.71 10^3/uL (0.0-0.7); Absolute Lymphocyte Count 1.17 10^3/uL (1.2-3.4); Absolute Monocyte Count 0.87 10^3/uL (0.1-0.8); Absolute Neutrophil Count 4.41 10^3/uL (1.2-6.7); Basophils % 1.2; Eosinophils % 9.8; HCT 39.7 % (40.0-50.0); HGB 13.9 g/dL (13.5-17.5); Immature Grans % 0.3; Lymphocytes % 16.1; MCV 91 fL (80-95); MPV 11.1 fL (8.0-11.0); Neutrophils % 60.6; Platelet Count 197 10^3/uL (130-400); RBC 4.35 10^6/uL (4.36-5.78); RDW 12.6 % (11.8-14.1); WBC 7.27 10^3/uL (4.4-10.8)
[2023-09-27 14:10] LABS: NT-proBNP 35 pg/mL (<300); Troponin I < 50 ng/L (<or=60)
[2023-09-27 14:19] LABS: PTT Activated 25.2 sec (23.6-32.8); Prothrombin Time 9.8 sec (9.1-11.1)
[2023-09-27 14:23] LABS: ALT 27 U/L (16-63); AST 20 U/L (15-37); Albumin 3.9 g/dL (3.4-5.0); Alkaline Phosphatase 95 U/L (46-116); BUN 25 mg/dL (7-18); Bilirubin, Total 0.6 mg/dL (0.2-1.0); CREATININE 1.6 mg/dL (0.70-1.30); Chloride 103 mmol/L (98-107); Estimated GFR 44.65 (mL/min/1.73m2); Glucose 195 mg/dL (74-106); Potassium 3.3 mmol/L (3.5-5.1); Sodium 143 mmol/L (136-145); Total Protein 7.8 g/dL (6.4-8.2)
[2023-09-27 15:06] LABS: D-Dimer 762 ng/mlFEU (<500)
[2023-09-27] MEDS: Potassium Chloride Liquid 20 MEQ PKT 10 MEQ PO (15:30)
[2023-09-27 16:28] LABS: Troponin I < 50 ng/L (<or=60)
[2023-09-27 16:52] LABS: COVID-19 PCR Negative (Negative); Influenza A PCR Negative (Negative); Influenza B PCR Negative (Negative); RSV PCR Negative (Negative)
[2023-09-27 16:56] LABS: Source NASOPHARYNX
== END 2023-09-27 17:25 | disposition home or self-care (01) ==
PROVIDERS: Emergency Provider Emergency Medicine Emergency Medical Services; PCP Internal Medicine
DX: R06.09 Other forms of dyspnea (principal); R07.89 Other chest pain; J98.01 Acute bronchospasm; R79.89 Other specified abnormal findings of blood chemistry; E11.9 Type 2 diabetes mellitus without complications; I10 Essential (primary) hypertension; E78.5 Hyperlipidemia, unspecified; Z79.02 Long term (current) use of antithrombotics/antiplatelets; Z86.73 Personal history of transient ischemic attack (TIA), and cerebral infarction without residual deficits; X00.1XXA Exposure to smoke in uncontrolled fire in building or structure, initial encounter
CPT/HCPCS: 36415; 80053; 87637; 93005; 99283; 71046; 83735; 83880; 84484; 85025; 85379; 85610; 85730; 93010; J7620

== ENCOUNTER 2024-01-18 05:45 | Outpatient (CLI) | payer MEDICARE, SELFPAY ==
[2024-01-18] MEDS: Inhaler, Assist Device 1 EACH MC (12:42)
[2024-01-18] MEDS: Levalbuterol HFA 15 GM INH 4 PUFF IH (12:42)
--- NOTE | 2024-01-18 14:17 | W.PFT ---
Date of service: 01/18/24 Time of Service: 08:06 Pulmonary Function Test Result Indications: Dyspnea Interpretation Spirometry: There is no airflow limitation. No bronchodilator response. Lung Volumes: Normal lung volumes Diffusion Capacity: Not completed per physician request Airway Pressure: Normal airways resistance Impression Normal pulmonary function testing. DLCO not completed due to physician request. Clinical Correlation therefore is recommended.
== END 2024-01-18 05:46 | disposition home or self-care (01) ==
LOC: RT 05:45
PROVIDERS: PCP Internal Medicine; Visit Provider Internal Medicine
DX: R06.00 Dyspnea, unspecified (principal)
CPT/HCPCS: 94060; 94726

== ENCOUNTER 2024-04-16 18:33 | Outpatient (REF) | payer MEDICARE, SELFPAY ==
[2024-04-16 19:16] LABS: BUN 33 mg/dL (7-18); CREATININE 1.8 mg/dL (0.70-1.30); Calcium 8.7 mg/dL (8.5-10.1); Chloride 104 mmol/L (98-107); Estimated GFR 38.77 (mL/min/1.73m2); Glucose 162 mg/dL (74-106); Potassium 3.4 mmol/L (3.5-5.1); Sodium 143 mmol/L (136-145)
== END 2024-04-16 18:34 | disposition home or self-care (01) ==
LOC: NCHCN 18:33
PROVIDERS: PCP Internal Medicine; Visit Provider Nurse Practitioner Family
DX: N18.30 Chronic kidney disease, stage 3 unspecified (principal)
CPT/HCPCS: 80048

== ENCOUNTER 2025-03-13 15:42 | Outpatient (REF) | payer MEDICARE, SELFPAY ==
[2025-03-13 18:26] LABS: HCT 37.7 % (40.0-50.0); MCH 31.6 pg (27.0-33.0); MCHC 34.5 % (32.0-36.0); MCV 92 fL (80-95); MPV 11.4 fL (8.0-11.0); Platelet Count 190 10^3/uL (130-400); RBC 4.11 10^6/uL (4.36-5.78); RDW 12.6 % (11.8-14.1); RDW-SD 42.2 fL; WBC 7.58 10^3/uL (4.4-10.8)
[2025-03-13 18:45] LABS: Anion Gap 6.6 mmol/L (3-11); BUN 29 mg/dL (7-18); CO2 29.4 mmol/L (21.0-32.0); CREATININE 1.8 mg/dL (0.70-1.30); Calcium 8.8 mg/dL (8.5-10.1); Calculated LDL 47 mg/dL (<100); Chloride 103 mmol/L (98-107); Cholesterol 121 mg/dL (<200); Estimated GFR 38.53 (mL/min/1.73m2); Glucose 288 mg/dL (74-106); HDL Cholesterol 40 mg/dL (>or=40); Potassium 3.7 mmol/L (3.5-5.1); Sodium 139 mmol/L (136-145); TSH 4.45 uIU/mL (0.36-3.74); Triglyceride 171 mg/dL (<150)
== END 2025-03-13 15:43 | disposition home or self-care (01) ==
LOC: NCHCN 15:42
PROVIDERS: PCP Internal Medicine; Visit Provider Internal Medicine
DX: I10 Essential (primary) hypertension (principal); E03.9 Hypothyroidism, unspecified; D63.1 Anemia in chronic kidney disease; E78.5 Hyperlipidemia, unspecified
CPT/HCPCS: 80048; 80061; 85027; 84443

== ENCOUNTER 2025-08-25 14:38 | Emergency (ER) | payer MEDICARE, SELFPAY ==
[2025-08-25] VITALS (15 sets, daily range): BP systolic 137–148; BP diastolic 73–84; PULSE 68–87; RESP 18; TEMP 36.6; O2SAT 93–97
--- NOTE | 2025-08-25 14:43 | W.ED.GENAD ---
Discharge Plan Disposition Patient Disposition: Home Discharge Details Clinical Impression: Acute diverticulitis, Renal cyst, left, Renal cyst, right, Hepatic cyst Primary Care Provider: Roe Boucher ED Provider: Triston Wolff Home Meds and New Rx's Prescriptions: New amoxicillin-pot clavulanate 875-125 mg tablet 1 tab PO BID 5 Days Qty: 14 0RF Continued aspirin [Aspir-81] 81 MG tablet,delayed release (DR/EC) 81 mg PO DAILY Patient Comments: 04/23/20--Stopped by Dr Ramos 6 mos ago--bleeding hemmorroids tamsulosin 0.4 MG capsule 2 tab PO HS simvastatin 20 MG tablet 20 mg PO DAILY glipizide 2.5 mg tablet extended release 24hr 2.5 mg PO DAILY Patient Comments: TAKE 1 TABLET BY MOUTH EVERY DAY levothyroxine 50 mcg tablet 50 mcg PO DAILY Patient Comments: TAKE 1 TABLET BY MOUTH EVERY DAY amlodipine 10 MG tablet 10 mg PO DAILY metformin [Glucophage] 1,000 MG tablet 1,000 mg PO BID losartan 100 MG tablet 100 mg PO DAILY Discharge Instructions Additional Instructions: You were seen in the emergency department for your abdominal pain. Your CAT scan shows that you have diverticulitis for which you are receiving antibiotics that you should take as directed. As we discussed you also have cysts in your kidneys and your liver. Radiology noted that these were benign and not dangerous appearing. You did not require any further workup. As we discussed if you develop worsening abdominal pain begin feeling nauseous or start vomiting or develop any fevers please return to the emergency department. Otherwise please follow-up as needed with your primary care provider. For your pain please take medications as follows: 1. Take acetaminophen (Tylenol), 1,000 mg (two 500 mg tabs) every 6 hours Stand Alone Forms: Portal Information HPI General Date/Time Provider Initiated Documentation: 08/25/25 14:43. HPI Narrative: [facility] This is an overall very well-appearing normothermic and not tachycardic 55-year-old male with indolent onset left lower quadrant pain with tenderness concerning for possibility of diverticulitis for which patient will undergo CT abdomen pelvis with IV contrast. No history of nephrolithiasis though ureteral lithiasis is certainly on differential. Patient is not an extremis and has no known history of AAA so doubt ruptured AAA. No pain out of proportion to suggest necrotizing soft tissue infection. No rash to abdomen to suggest zoster. No shortness of breath to suggest referred pain from PE so did not send a D-dimer. No dysuria no frequency to suggest UTI. No testicular pain to suggest torsion so do not feel patient required a testicular ultrasound. No vomiting no history of past abdominal surgeries make my suspicion low for small bowel obstruction. No right lower quadrant tenderness to suggest appendicitis. No cough to suggest pneumonia. Will reassess following labs and imaging. 3:42 PM Comprehensive metabolic panel noted for very mild hypokalemia. CKD no SHERLEY. No significant LFT abnormalities. CBC showing no leukocytosis. Mild persistent normocytic anemia. No thrombocytopenia. 4:51 PM Patient was found to have acute uncomplicated sigmoid diverticulitis. No perforation. No abscess. Patient was feeling well when I met with him. He had bilateral renal cysts and hepatic cysts. I updated the patient about these incidental findings. Radiology advised no further imaging follow-up was required. Patient his girlfriend and I discussed that he should return if he developed any worsening pain fevers could not eat or drink or if he had any other concerns. He received his first dose of amoxicillin clavulanic acid in the ED and was discharged with empiric trial of expectant outpatient management with a 5-day course of amoxicillin clavulanic acid. HPI The patient presents for evaluation of abdominal pain. He suspects a recurrence of diverticulitis, a condition he was diagnosed with 2 to 3 years ago. The pain is localized in the left groin area. He reports no history of kidney stones, nausea, vomiting, fever, or dysuria. His last meal was consumed the previous night, and today he has only had chicken broth and Jell-O. He has no history of abdominal surgeries. During his previous episode of diverticulitis, he was treated with antibiotics, which led to an improvement in his condition. Exam General: Well-appearing in no acute distress speaking in complete sentences. Head: Normocephalic, atraumatic. Eye: Extraocular eye movements intact. No conjunctival injection. No scleral icterus. Ear, nose, mouth, throat: Grossly normal inspection. Normal voice, handling secretions normally. Neck: Trachea midline. Cardiovascular: Well-perfused distal extremities. Respiratory: Nonlabored respiration. Gastrointestinal: Nondistended abdomen. Soft. Minimal left lower quadrant tenderness. No rebound. No guarding. Musculoskeletal: No edema. Moving all 4 extremities spontaneously. Skin: Normal for age and race, grossly normal temperature and turgor. No acute rash. Neurologic: Alert and appropriate, no apparent acute deficits. Psychiatric: Mood and manner are appropriate. Grooming and personal hygiene are appropriate. Related Data Home Medications Medication Instructions Recorded Confirmed aspirin 81 mg tablet,delayed 81 mg PO DAILY 10/19/15 08/25/25 release (Aspir-) simvastatin 20 mg tablet 20 mg PO DAILY 10/19/15 08/25/25 tamsulosin 0.4 mg capsule 2 tab PO HS 10/19/15 08/25/25 amlodipine 10 mg tablet 10 mg PO DAILY 11/04/16 08/25/25 losartan 100 mg tablet 100 mg PO DAILY 11/04/16 08/25/25 metformin 1,000 mg tablet 1,000 mg PO BID 11/04/16 08/25/25 (Glucophage) amoxicillin 875 mg-potassium 1 tab PO BID 5 days #14 tabs 08/25/25 clavulanate 125 mg tablet glipizide 2.5 mg tablet, extended 2.5 mg PO DAILY 08/25/25 08/25/25 release 24 hr levothyroxine 50 mcg tablet 50 mcg PO DAILY 08/25/25 08/25/25 Previous Rx's Medication Instructions Recorded amoxicillin 875 mg-potassium 1 tab PO BID 5 days #14 tabs 08/25/25 clavulanate 125 mg tablet Allergies Allergy/AdvReac Type Severity Reaction Status Date / Time No Known Allergies Allergy Unverified 08/25/25 14:44 General BEATRIZ: 3 PFSH All Active Problems (Updated 08/25/25 @ 16:47 by Triston Wolff MD) Hepatic cyst (Acute) Renal cyst, right (Acute) Renal cyst, left (Acute) Acute diverticulitis (Acute) TIA (transient ischemic attack) (Acute) Medical History (Updated 08/25/25 @ 16:47 by Triston Wolff MD) BPH (benign prostatic hyperplasia) Diabetes Hyperlipidemia Hypertension Surgical History S/P wrist surgery S/P right knee arthroscopy Family History Mother Stroke Hypertension Brain cancer Social History Smoking/Tobacco Use Status: Never Smoking risk assessment performed?: Yes Alcohol Intake: never Drug use: Never Substance use type: does not use 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
--- NOTE | 2025-08-25 15:00 | DI.CT_ITS ---
Exam(s) CT ABDOMEN PELVIS W EXAM: CT ABDOMEN PELVIS W CLINICAL HISTORY: Left lower quadrant pain. TECHNIQUE: Imaging Protocol: Axial computed tomography images with coronal and sagittal reformatted images were created and reviewed CONTRAST MATERIAL: Intravenous: Omnipaque-350 75cc Oral: None COMPARISON: None FINDINGS: VISUALIZED LUNG BASES: No nodules nor pleural effusions evident. ABDOMEN: There is no ascites. LIVER: There are multiple well-defined hypodensities in both lobes of the liver which have the appearance of benign cysts ranging up to 2.5 cm size. There are no dilated intrahepatic ducts. GALLBLADDER/BILIARY: There is a possible small polyp in the gallbladder neck region. Gallbladder wall is not edematous and there is no pericholecystic fluid. The CBD is not dilated PANCREAS: No evidence of pancreatic mass nor dilatation of the pancreatic duct. SPLEEN: Spleen is not enlarged. No obvious intrasplenic lesions. Splenic and portal veins are patent. ADRENALS: There are no significant adrenal masses. KIDNEYS:There are bilateral benign renal cysts. The largest is in the anterior aspect of the lower pole of the right kidney and measures 4.3 by 3.4 cm. These benign cysts do not require further workup.. There are no solid renal masses. No calculi nor hydronephrosis.. ABDOMINAL AORTA: Abdominal aorta is not enlarged. LYMPH NODES:There is no retroperitoneal nor paraaortic adenopathy. ABDOMINAL WALL: No evidence of significant anterior abdominal wall nor inguinal hernia. GI: No evidence of appendicitis. There are diverticuli in the descending-left colon and in the sigmoid. There is evidence of acute diverticulitis in the upper left sigmoid. The culprit diverticulum is on the anterior superior aspect of the sigmoid at this level, as best seen on sagittal image number 76. There is no perforation-free air at this time. No abscess evident. PELVIS: LYMPH NODES: There is no intrapelvic nor inguinal adenopathy. REPRODUCTIVE: Mild enlargement of the prostate. Seminal vesicles unremarkable. URINARY BLADDER: No calculi nor obvious masses evident OSSEOUS: No fractures and no significant osseous lesions. Evidence of previous surgery in the lower lumbar spine within inter spinous device at L4-5 level. There are large anterior osteophytes at L4-5 level incidentally noted. There is moderate advanced disc space narrowing at this level and advanced disc space narrowing at L5-S1 level but no listhesis. No pars defects. IMPRESSION: 1. Findings are consistent with acute sigmoid diverticulitis. No evidence of perforation or abscess at this time. No free fluid 2. Benign cysts in the liver and kidneys as described above. Largest cyst in the liver measures 2.5 cm. Largest kidney cyst is 4.3 x 3.4 cm (right kidney). Does not require further workup. Report called by myself to ER physician 08/25/2023 at 4:43 p.m. RADIATION DOSE DELIVERED: 650.27mGy.cm Total DLP DATA REPOSITORY: All CT scans at this facility are submitted to the National Radiology Data Registry (NRDR) Dose Index Registry (DIR) with the [employer] ([employer]). RADIATION OPTIMIZATION: All CT scans at this facility use at least one of these dose optimization techniques: automated exposure control; mA and/or kV adjustment per patient size (includes targeted exams where dose is matched to clinical indication); or iterative reconstruction.
[2025-08-25] MEDS: Normal Saline 500 ML IV (15:18)
[2025-08-25 15:19] LABS: Abs Immature Grans 0.04 10^3/uL (0.0-0.06); HCT 38.8 % (40.0-50.0); HGB 13.3 g/dL (13.5-17.5); Immature Grans % 0.3 %; MCH 31.4 pg (27.0-33.0); MCHC 34.3 % (32.0-36.0); MCV 92 fL (80-95); MPV 11.3 fL (8.0-11.0); Platelet Count 199 10^3/uL (130-400); RBC 4.23 10^6/uL (4.36-5.78); RDW 12.5 % (11.8-14.1); RDW-SD 41.4 fL; WBC 12.82 10^3/uL (4.4-10.8)
[2025-08-25 15:38] LABS: ALT 19 U/L (10-49); AST 17 U/L (<34); Albumin 4.4 g/dL (3.4-5.0); Alkaline Phosphatase 117 U/L (46-116); Anion Gap 10 mmol/L (3-11); BUN 20 mg/dL (9-23); Bilirubin, Total 0.90 mg/dL (0.2-1.2); CO2 30.0 mmol/L (20.0-31.0); Calcium 9.0 mg/dL (8.3-10.6); Chloride 103 mmol/L (98-107); Glucose 132 mg/dL (74-106); Potassium 3.3 mmol/L (3.5-5.1); Sodium 143 mmol/L (136-145); Total Protein 7.4 g/dL (5.7-8.2)
[2025-08-25] MEDS: Normal Saline Flush 10 ML SYR IVP (16:03)
[2025-08-25] MEDS: Normal Saline - Diluent 50 ML VIAL IJ (16:03)
[2025-08-25] MEDS: Omnipaque 350 MG/ML 100 ML BTL IJ (16:03)
[2025-08-25] MEDS: Amoxicillin 875/Clav. 125 TAB PO (16:52)
[2025-08-25] MEDS: Acetaminophen 500 MG TAB 1000 MG PO (16:52)
== END 2025-08-25 16:58 | disposition home or self-care (01) ==
LOC: ER 16:48
PROVIDERS: Emergency Provider Emergency Medicine; PCP Internal Medicine
DX: R10.32 Left lower quadrant pain (principal); N28.1 Cyst of kidney, acquired; K57.92 Diverticulitis of intestine, part unspecified, without perforation or abscess without bleeding; K76.89 Other specified diseases of liver
CPT/HCPCS: 36415; 80053; 96360; 99285; 74177; 85025; 99284; J3490

== ENCOUNTER 2025-09-23 19:38 | Outpatient (REF) | payer MEDICARE, SELFPAY ==
[2025-09-23 20:29] LABS: Microalb ug/mg Crea 192.3 ug/mg Cr
== END 2025-09-23 19:39 | disposition home or self-care (01) ==
LOC: NCHCN 19:38
PROVIDERS: PCP Internal Medicine; Visit Provider Nurse Practitioner
DX: E11.65 Type 2 diabetes mellitus with hyperglycemia (principal); Z79.4 Long term (current) use of insulin
CPT/HCPCS: 82043; 82570